=== PATIENT | female | born 1970 | race African-American/Black ===

== ENCOUNTER 2017-02-19 10:09 | Emergency (ER) | payer OTHER ==
[~2017-02-19] VITALS: Ht 172.7 cm; Wt 117.9 kg
[~2017-02-19 10:09] MED LIST: AMLODIPINE BESY10 MG PO; AMOXICILLIN 50500 M1; ANTIVERT25 MG PO; ATIVAN0.5 MG PO; CIPROFLOXACIN500 M1 PO; COREG25 MG; COZAAR 25MG TAB25 MG PO; COZAAR 50 MG TA50 M1 PO; HYDRALAZINE 2525 MG PO; K-PHOS NEUTRAL250 MG PO; LASIX 40 MG TAB40 M1 PO; LISINOPRIL10 MG PO; LOPRESSOR100 MG PO; LOSARTAN-HCTZ1 EACH PO; MOTION RELIEF25 MG PO; MYLICON DR40 MG/0.1 PO; NAPROSYN500 MG PO; NORCO 5-325 TA1 EACH PO; NORFLEX100 MG PO; NORVASC10 MG PO; OMEPRAZOLE 20 M20 M1 PO; OMEPRAZOLE40 MG; PACERONE 200 M200 M1 PO; PEPCID40 MG PO; POTASSIUM20 PO; SPIRONOLACTONE25 M3 PO; TOPROL XL100 MG PO; TYLENOL W/CODEI1 TA2 PO; ULTRAM 50MG TAB50 MG PO; ZOLOFT 50 MG TA50 M1 PO; ZPAK PO
[2017-02-19 10:46] LABS: ABSOLUTE NEUTROPHILS 3.4 thou/uL (1.4-8.2); BASOPHILS 0.7 % (0.0-2.0); HEMATOCRIT 39.8 % (37.0-47.0); HEMOGLOBIN 12.9 gm/dL (12.0-15.0); LYMPHOCYTES 23.3 % (24.0-44.0); MCH 25.1 pg (26.0-34.0); MCHC 32.5 g/dL (28.0-37.0); MCV 77.3 fL (80.0-100.0); MONOCYTES 9.9 % (1.0-8.0); PLATELET COUNT 324 thou/uL (150-400); POLYS 63.1 % (36.0-66.0); RBC 5.15 mil/uL (4.20-5.00); RDW 15.6 % (10.5-14.5); WBC 5.4 thou/uL (4.0-11.0)
[2017-02-19 10:48] LABS: MANUAL DIFF NO
[2017-02-19 10:59] LABS: CALCIUM 8.9 mg/dL (8.5-10.1); CREATININE 0.9 mg/dL (0.6-1.3); POTASSIUM 4.1 mmol/L (3.5-5.1)
[2017-02-19 11:04] LABS: ALBUMIN 3.2 g/dL (3.4-5.0); TOTAL BILIRUBIN 0.4 mg/dL (<0.1-1.0); TOTAL PROTEIN 7.9 g/dL (6.4-8.2)
[2017-02-19 11:54] LABS: URINE BILIRUBIN NEGATIVE (Negative); URINE BLOOD NEGATIVE (Negative); URINE COLOR YELLOW; URINE GLUCOSE-RANDOM* NEGATIVE (Negative); URINE KETONES NEGATIVE (Negative); URINE LEUKOCYTES-REFLEX NEGATIVE (Negative); URINE PROTEIN (DIPSTICK) NEGATIVE (Negative); URINE SPECIFIC GRAVITY 1.015 (1.003-1.035); URINE UROBILINOGEN 0.2 E.U./dl (0.2-1.0)
[2017-02-19] MEDS ORDERED: FLONASE 0.05%50 MCG NASAL (12:15)
[2017-02-19] MEDS ORDERED: ANTIVERT25 MG PO (12:15)
[2017-02-19] MEDS ORDERED: PHENERGAN 25 MG25 M1 PO (12:15)
== END 2017-02-19 13:23 | disposition home or self-care (01) ==
LOC: ER 10:09
PROVIDERS: Physician Assistant
DX: J06.9 Acute upper respiratory infection, unspecified (principal); B34.9 Viral infection, unspecified; I50.9 Heart failure, unspecified; I10 Essential (primary) hypertension; I42.9 Cardiomyopathy, unspecified; Z88.1 Allergy status to other antibiotic agents

== ENCOUNTER 2019-01-20 16:04 | Emergency (ER) | payer OTHER ==
[~2019-01-20] VITALS: Ht 172.7 cm; Wt 117.5 kg
[~2019-01-20 16:04] MED LIST changes: +FLONASE 0.05%50 MCG NASAL; +MEDROLDOSEPACK PO; +PHENERGAN 25 MG25 M1 PO
[2019-01-20 16:42] LABS: ABSOLUTE NEUTROPHILS 3.5 thou/uL (1.4-8.2); BASOPHILS 0.9 % (0.0-2.0); EOSINOPHILS 1.8 % (0.0-3.0); HEMATOCRIT 38.6 % (37.0-47.0); HEMOGLOBIN 12.7 gm/dL (12.0-15.0); LYMPHOCYTES 29.4 % (24.0-44.0); MCH 25.4 pg (26.0-34.0); MCHC 32.9 g/dL (28.0-37.0); MCV 77.2 fL (80.0-100.0); MONOCYTES 11.2 % (1.0-8.0); PLATELET COUNT 278 thou/uL (150-400); POLYS 56.7 % (36.0-66.0); RDW 15.8 % (10.5-14.5); WBC 6.2 thou/uL (4.0-11.0)
[2019-01-20 16:50] LABS: CALCIUM 9.2 mg/dL (8.5-10.1); CREATININE 1.2 mg/dL (0.6-1.0)
[2019-01-20 16:56] LABS: ALBUMIN 3.4 g/dL (3.4-5.0); TOTAL BILIRUBIN 0.8 mg/dL (<0.1-1.0); TOTAL PROTEIN 8.1 g/dL (6.4-8.2)
[2019-01-20 16:58] LABS: URINE BILIRUBIN NEGATIVE (Negative); URINE BLOOD NEGATIVE (Negative); URINE CLARITY CLEAR; URINE COLOR YELLOW; URINE GLUCOSE-RANDOM* NEGATIVE (Negative); URINE KETONES TRACE (Negative); URINE LEUKOCYTES-REFLEX NEGATIVE (Negative); URINE NITRITE-REFLEX NEGATIVE (Negative); URINE PROTEIN (DIPSTICK) NEGATIVE (Negative); URINE SPECIFIC GRAVITY >= 1.030 (1.005-1.035); URINE UROBILINOGEN 0.2 E.U./dl (0.2-1.0)
[2019-01-20] MEDS ORDERED: NORCO 5-325 TA1 EACH PO (19:20)
[2019-01-20 19:55] VITALS: BP 134/74
== END 2019-01-20 19:56 | disposition home or self-care (01) ==
LOC: ER 16:04
PROVIDERS: Emergency Medicine
DX: R10.13 Epigastric pain (principal); I11.0 Hypertensive heart disease with heart failure; I50.9 Heart failure, unspecified; I42.9 Cardiomyopathy, unspecified; Z88.1 Allergy status to other antibiotic agents; Z98.890 Other specified postprocedural states

== ENCOUNTER 2019-03-06 12:25 | Inpatient (IN) | payer OTHER ==
[~2019-03-06] VITALS: Ht 170.2 cm; Wt 123.2 kg
--- NOTE | ~2019-03-06 | HC ---
[facility] [place] [address] CONSULTATION Name: JASMYNE RODENIE Room #: 364-P [facility] IN M.R.#: [id number] Admission: 03/06/19 ������������������ Attend Phys: Sky Marrero MD Discharge: 03/07/19 ������������������ Date of : 70 Report #: [id number] THIS REPORT FOR: //name// CC: Josafat Marrero DATE OF SERVICE: 03/07/2019 INPATIENT CONSULTATION CHIEF COMPLAINT: Shortness of breath. HISTORY OF PRESENT ILLNESS: The patient is a 48-year-old female who has a history of a nonischemic cardiomyopathy. She is usually followed by Dr. Santiago, but has been doing relatively well and only sees him approximately once per year. Over the last several days, she had been having increasing shortness of breath. She denies palpitations or heart racing. She has a defibrillator and denies any defibrillator discharges. She had not been having orthopnea or PND. She has been compliant with her medications. She denies fevers, chills or productive cough. X-ray on presentation revealed mild infiltrates. She was given IV Lasix overnight and is comfortably sitting up in bed, without any complaints of dyspnea. 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 She had an ICD implant about 12 years ago. She has remote history of mitral valve repair. She does have a history of hypertension, which therapy was initiated before her heart failure diagnosis apparently. She cannot remember her last ejection fraction. She usually gets her care at [facility]. She has cervical radiculopathy. PAST SURGICAL HISTORY: Status post ICD. HOME MEDICATIONS: Include vitamin C, apple cider vinegar, amlodipine 5 mg daily, Coreg 12.5 mg p.o. b.i.d. and omeprazole. It is noted her defibrillator is a Bi[employer] device, which was interrogated and apparently has normal device function. REVIEW OF SYSTEMS: [facility] [address] [place] [address] CONSULTATION Name: JASMYNE ROD RIGOBERTO Room #: 364-P [facility] IN Sybil.#: [id number] Admission: 03/06/19 ������������������ Attend Phys: Sky Marrero MD Discharge: 03/07/19 ������������������ Date of : 70 Report #: [id number] GENERAL: No fevers or chills. PULMONARY: No wheezing or cough. CARDIOVASCULAR: No orthopnea, no PND. Positive dyspnea with exertion. Positive sharp chest pain. HEMATOLOGIC: No anemia or bleeding disorders. RENAL: No history of kidney failure. SKIN: No rash. ENDOCRINE: She is not known to be a diabetic. EYES: No history of blurred vision or loss of vision. PHYSICAL EXAMINATION: VITAL SIGNS: Blood pressure 115/83, pulse rate 76 and temperature is 36.9. Her weight is 123 kilograms. GENERAL: This is a pleasant, healthy-appearing -[place] female. She is in no apparent distress. HEENT: Eyes, EOMs intact. No facial asymmetry. NECK: Supple. No jugular venous distention. CARDIOVASCULAR: Regular. I cannot hear a murmur. LUNGS: Clear to auscultation. ABDOMEN: Nontender. EXTREMITIES: There is nonpitting edema. NEUROLOGIC: There are no focal deficits. LABORATORY DATA: Electrocardiogram shows sinus tachycardia, borderline LVH. Chest x-ray reveals pulmonary intravenous congestion, diffuse interstitial edema. Sodium is 138, potassium is 4.1, chloride is 105, CO2 is 26, BUN is 18 and creatinine is 1.3. Troponin I is 0.06 x 3 sets. BNP is 3027, N-terminal. Hemoglobin is 13.6, white blood cell count is 8.3 and platelet count is 270,000. Toxicology is negative. IMPRESSION: 1. Acute systolic congestive heart failure. She received a dose of IV Lasix in the Emergency Room, with mostly complete resolution of her symptoms overnight. She is breathing comfortably. I do not think this is related to noncompliance with her medical therapy, perhaps diet. She admits she drinks a lot of ice tea and perhaps has been more lax about her diet. 2. Nonischemic cardiomyopathy. She has a history of peripartum-related cardiomyopathy. An echocardiogram is ordered and we will try to obtain records from her most recent evaluation. Apparently, her ejection fraction had near normalized according to the patient with medical therapy. I think it is reasonable to continue with her home medical therapy, but she perhaps should have a Lasix available for p.r.n. usage. Initially, we will schedule her on 2 times per week with potassium. 3. Hypertension as noted above. She has been compliant with her medical [address] [address] CONSULTATION Name: JASMYNE ROD Room #: 364-P [facility] IN M.R.#: [id number] Admission: 03/06/19 ������������������ Attend Phys: Sky Marrero MD Discharge: 03/07/19 ������������������ Date of : 70 Report #: [id number] therapy and she seems fairly well controlled. 4. Status post implantable cardioverter defibrillator. Her device was interrogated. It is a Biotronik device. PLAN: If she has a near normal ejection fraction, then we would not alter her medical therapy, but only add low-dose Lasix 2 times per week. ��������������������������������������������� ���������������������������������������� By: ��������������������������������������������� [id number] Mauricio Gunderson MD, FACC /nt
[2019-03-06 12:25] VITALS: BP 197/138
[2019-03-06] MEDS ORDERED: VITAMINC500 PO (12:29)
[2019-03-06] MEDS ORDERED: VITAMIN D31000 UNI2 PO (12:30)
[2019-03-06] MEDS ORDERED: APPLE CIDER VI500 MG PO (12:30)
--- NOTE | 2019-03-06 13:11 | NUR ---
[employer] REP REQUESTED FOR STAT INTERROGATION [phone]
--- NOTE | 2019-03-06 13:16 | NUR ---
IV TEAM REQUESTED; THIS RN AND SEGUNDO SCANLON UNABLE TO ACCESS
--- NOTE | 2019-03-06 13:18 | NUR ---
BO WITH [employer] CALLED BACK STATING SHE IS ON HER WAY TO [place] AND WILL COME HERE AFTER; STATES HER DEFIB IS MONITORED DAILY; SHE WILL CALL FOR REPORT NOW AND CALL ME BACK; PROVIDER AWARE
[2019-03-06 13:32] LABS: URINE BILIRUBIN NEGATIVE (Negative); URINE BLOOD 3+ (Negative); URINE CLARITY SL CLOUDY; URINE COLOR YELLOW; URINE GLUCOSE-RANDOM* NEGATIVE (Negative); URINE KETONES NEGATIVE (Negative); URINE LEUKOCYTES-REFLEX NEGATIVE (Negative); URINE NITRITE-REFLEX NEGATIVE (Negative); URINE PROTEIN (DIPSTICK) NEGATIVE (Negative); URINE UROBILINOGEN 0.2 E.U./dl (0.2-1.0)
[2019-03-06 13:39] LABS: BACTERIA-REFLEX 1-9 Few /HPF (None Seen); CASTS None Seen /LPF (None Seen); CRYSTALS None Seen /LPF (None Seen); SQUAMOUS 4-10 Moderate /LPF (0-3); URINE RBC 3-10 Few /HPF (0-2); URINE WBC-REFLEX None Seen /HPF (0-5)
[2019-03-06 13:45] LABS: BASOPHILS 0.8 % (0.0-2.0); EOSINOPHILS 1.1 % (0.0-3.0); HEMOGLOBIN 13.6 gm/dL (12.0-15.0); LYMPHOCYTES 17.5 % (24.0-44.0); MCH 24.8 pg (26.0-34.0); MCHC 32.5 g/dL (28.0-37.0); MCV 76.3 fL (80.0-100.0); MONOCYTES 8.2 % (1.0-8.0); PLATELET COUNT 270 thou/uL (150-400); POLYS 72.4 % (36.0-66.0); RDW 15.7 % (10.5-14.5); WBC 8.3 thou/uL (4.0-11.0)
[2019-03-06 13:52] LABS: ANION GAP 7 mmol/L (7-16); BUN 18 mg/dL (7-18); CALCIUM 9.2 mg/dL (8.5-10.1); CHLORIDE 105 mmol/L (98-107); CO2 26 mmol/L (21-32); CREATININE 1.3 mg/dL (0.6-1.0); GLUCOSE 108 mg/dL (74-106); POTASSIUM 4.1 mmol/L (3.5-5.1); SODIUM 138 mmol/L (136-145)
[2019-03-06 13:57] LABS: APTT 26.7 Seconds (24.5-32.8); PROTIME 10.5 Seconds (9.3-11.4)
[2019-03-06 14:02] LABS: ALBUMIN 3.6 g/dL (3.4-5.0); MAGNESIUM 1.9 mg/dL (1.8-2.4); SGOT 27 U/L (15-37); SGPT 28 U/L (30-65); TOTAL BILIRUBIN 0.9 mg/dL (<0.1-1.0); TOTAL PROTEIN 8.5 g/dL (6.4-8.2); TROPONIN-I <0.06 ng/mL (<0.06)
[2019-03-06 14:09] LABS: AMP/METHAMP Negative (Negative); BARBITURATES Negative (Negative); BENZODIAZEPINES Negative (Negative); COCAINE Negative (Negative); METHADONE Negative (Negative); OPIATES Negative (Negative); PCP Negative (Negative)
[2019-03-06] MEDS ORDERED: CARVEDILOL12.5 MG PO (14:12)
[2019-03-06] MEDS ORDERED: NORVASC5 MG PO (14:12)
[2019-03-06] MEDS ORDERED: OMEPRAZOLE20 M2 PO (14:14)
[2019-03-06 15:24] VITALS: BP 157/127
[2019-03-06 15:27] VITALS: BP 139/92
--- NOTE | 2019-03-06 15:47 | NUR ---
ATTEMPTED TO GIVE REPORT; NURSE IS IN A ROOM AND WILL HAVE TO CALL ME BACKI PER FUNMI (SP?)
--- NOTE | 2019-03-06 16:22 | NUR ---
REPORT GIVEN; PT TRANSPORTING TO INPT ROOM NOW; LAB IN ROUTE TO DRAW REPEAT TROPONIN IN ROOM 364
[2019-03-06 16:40] VITALS: BP 154/96
--- NOTE | 2019-03-06 18:13 | NUR ---
PT ADMITTED FROM HOME. REPORTS DIZZINESS X 3 TODAY THAT WAS NOT RELIEVED WITH MECLIZINE..ALSO SHORT OF AIR...NO EDEMA NOTED..
[2019-03-06 19:44] VITALS: BP 143/91
[2019-03-07 00:10] VITALS: BP 128/74
[2019-03-07 03:33] VITALS: BP 133/84
--- NOTE | 2019-03-07 03:35 | NUR ---
Patient making slow progress towards outcome goals. Vital signs stable. No c/o chest pain. Rhythm sinus with pvcs. Gait steady up adlib without difficulty.
[2019-03-07 08:00] VITALS: BP 115/83
[2019-03-07 11:24] VITALS: BP 108/78
[2019-03-07 15:06] VITALS: BP 122/83
--- NOTE | 2019-03-07 15:18 | 2DMMODE ---
[facility] [address] [address] 2 D/M-MODE ECHOCARDIOGRAM Name: MARCELJASMYNE RIGOBERTO Room #: 364-P ADM IN M.R.#: [id number] ������������� Admission: 03/06/19 ������������� Attend Phys: Sky Marrero MD Discharge: ��� ������������� ��� Date of : 70 Date of Service: 03/07/19 1517 �� Report #: [id number] �������� ��������������������������������������������[id number] THIS REPORT FOR: //name// APPROVED REPORT Study performed: 03/07/2019 12:06:02 EXAM: Comprehensive 2D, Doppler, and color-flow Echocardiogram Patient Location: Echo lab Room #: 364 Status: routine BSA: 2.30 HR: 80 bpm BP: 108/78 mmHg Rhythm: Irregular Other Information Study Quality: Good Technically limited study due to morbid obesity. Indications Short of breath, CHF. Hx: NISCM, MV repair, ICD, HTN 2D Dimensions RVDd: 42.89 mm IVSd: 12.95 (7-11mm) LVOT Diam: 21.77 (18-24mm) LVDd: 64.45 mm PWd: 13.46 (7-11mm) Ascending Ao: 37.37 (22-36mm) LVDs: 56.01 (25-40mm) Aortic Root: 33.64 mm Volumes Left Atrial Volume (Systole) Single Plane 4CH: 90.25 mL Single Plane 2CH: 94.57 mL LA ESV Index: 42.00 mL/m2 Aortic Valve AoV Peak Warren.: 0.95 m/s AO Peak Gr.: 3.61 mmHg LVOT Max P.16 mmHg LVOT Max V: 0.89 m/s GENIE Vmax: 3.48 cm2 Mitral Valve MV Decel. Time: 199.51 ms MV PHT: 57.86 ms [facility] [place] [address] 2 D/M-MODE ECHOCARDIOGRAM Name: MARCELJASMYNE [facility] Room #: 364-[facility] IN M.R.#: [id number] ������������� Admission: 03/06/19 ������������� Attend Phys: Sky Marrero MD Discharge: ��� ������������� ��� Date of : 70 Date of Service: 03/07/19 1517 �� Report #: [id number] �������� ��������������������������������������������[id number] IVRT: 100.35 ms Pulmonary Valve PV Peak Warren.: 0.72 m/s PV Peak Gr.: 2.06 mmHg Tricuspid Valve TR Peak Warren.: 3.32 m/s RAP Estimate: 5.00 mmHg TR Peak Gr.: 44.18 mmHg PA Pressure: 49.00 mmHg Left Ventricle Left ventricle is moderately dilated. There is global hypokinesis of the left ventricle. Mild concentric left ventricular hypertrophy. Left ventricular systolic function is severely decreased. LVEF is 25-30%. This study is not technically sufficient to allow evaluation of the LV diastolic function. Right Ventricle Right ventricle is mildly dilated. Right ventricle is mildly hypokinetic. Device lead is present in the right ventricle. Atria Left atrium is moderately dilated. Right atrium is mildly dilated. Aortic Valve The aortic valve is normal in structure. Trace aortic regurgitation. There is no aortic valvular stenosis. Mitral Valve History of MV repair with annuloplasty ring. Mean pressure gradient is 5mmHg. Moderate to Severe mitral regurgitation. Eccentric jet directed to septum No evidence of mitral valve stenosis. Tricuspid Valve The tricuspid valve is normal in structure. Moderate to severe tricuspid regurgitation. Estimated PAP is 50mmHg. Pulmonic Valve The pulmonary valve is normal in structure. Mild to moderate pulmonic regurgitation. Great Vessels The aortic root is normal in size. The ascending aorta is normal in size. IVC is normal in size and collapses >50% with inspiration. [facility] [address] [place] [address] 2 D/M-MODE ECHOCARDIOGRAM Name: JASMYNE ROD RIGOBERTO Room #: 364-P ADM IN M.R.#: [id number] ������������� Admission: 03/06/19 ������������� Attend Phys: Sky Marrero MD Discharge: ��� ������������� ��� Date of : 70 Date of Service: 03/07/19 1517 �� Report #: [id number] �������� ��������������������������������������������[id number] Pericardium Trivial anterior pericardial fluid noted. <Conclusion> Left ventricle is moderately dilated. LVEF is 25-30%. There is global hypokinesis of the left ventricle. Right ventricle is mildly dilated. Right ventricle is mildly hypokinetic. Left atrium is moderately dilated. Right atrium is mildly dilated. There is no aortic valvular stenosis. Trace aortic regurgitation. Moderate to Severe mitral regurgitation. Eccentric jet directed to septum History of MV repair with annuloplasty ring. Mean pressure gradient is 5mmHg. No evidence of mitral valve stenosis. Moderate to severe tricuspid regurgitation. Estimated PAP is 50mmHg. Trivial anterior pericardial fluid noted. ��������������������������������������������� <ELECTRONICALLY SIGNED> ���������������������������������������� By: Mauricio Gunderson MD, FACC ��������������������������������������������� 03/07/19 1517 16 151 Mauricio Gunderson MD, FACC /INF
--- NOTE | 2019-03-07 16:35 | EKG ---
[place] [address] [facility] [place] [address] ELECTROCARDIOGRAM REPORT Name: MARCELJASMYNE MCKEONENIE Room #: 364-P ADM IN M.R.#: [id number] ������������������ Admission: 03/06/19 ������������������ Attend Phys: Sky Marrero MD Discharge: ������������������ Date of : 70 Report #: [id number] ����������������������������������������������������������������� [id number] THIS REPORT FOR: //name// [facility] ED Test Date: 2019-03-06 Test Time: 13:02:14 Pat Name: JASMYNE ROD Department: Room: 364 Gender: F Forms Builder: DELMA : 1970 Requested By: Woo Potter Order Number: [id number] MD: Mk Glover Measurements Intervals [place] Rate: 105 P: 56 IN: 164 QRS: 31 QRSD: 89 T: 112 QT: 341 QTc: 451 Interpretive Statements Sinus tachycardia Occasional premature ventricular complexes Poor R wave progression Nonspecific ST and T wave abnormality No previous ECGs available for comparison Electronically Signed On 03-07-2019 16:35:01 CDT by Mk Glover [email or web address] ��������������������������������������������� <ELECTRONICALLY SIGNED> ���������������������������������������� By: Mk Glover MD, [facility] ��������������������������������������������� 03/07/19 1635 D: [id number] Mk Glover MD, FAC /EPI
--- NOTE | 2019-03-07 16:57 | NUR ---
assessment: cm reviewed chart and met with patient at the bedside. PT REPORTS SHE LIVES AT HOME WITH HER TWO CHILDREN ONE IS 20 AND ANOTHER IS 14. SHE REPORTS SHE WAS HOPING SHE COULD GO TODAY BECAUSE ONE OF THEM HAS SCHIZOPHRENIA AND SHE WOULD RATHER BE HOME BUT STATES THEY WILL BE OK IF SHE HAS TO STAY. CM NOTIFIED ATTENDING. PT IS STAYING THE NIGHT. CM WENT BACK TO FIND OUT MORE INFORMATION FROM PATIENT REGARDING HER KIDS AND THEIR CURRENT SITUATION AT HOME BUT PT IS OUT FOR HER PIPIDA SCAN. CM NOTIFIED BEDSIDE RN OF SITUATION AND IF SHE COULD ASK IF ANOTHER FAMILY MEMBER COULD CHECK OR STAY WITH THE KIDS ALTHOUGH ONE IS OF AGE. CM NOTIFIED BEDSIDE RN OF THE NUMBER FOR THE [place] [employer] WHERE THEY COULD ALSO CALL AND REQUEST A WELLNESS CHECK IF PATINT FELT IT WAS NEEDED.
--- NOTE | 2019-03-07 18:28 | NUR ---
PT ADVISED TO STAY IN HOSPITAL TIL SEEN BY CARDIOLOGY TOMORROW TO EVALUATE EF 25-30% FROM ECHO TODAY. PATIENT IS LEAVING AMA. ADVISED OF RISKS TO HER AND ADVISED HER TO FOLLOW UP MICHAEL WITH DR MCGEE RE ECHO RESULTS.
== END 2019-03-07 18:58 | disposition left against medical advice (07) | DRG 292 ==
LOC: ER 12:25 → 3W 14:36 → EROBS 14:36 → 3W 16:22
PROVIDERS: Emergency Medicine; ADMIT Internal Medicine
DX: I11.0 Hypertensive heart disease with heart failure (principal); Z68.41 Body mass index [BMI] 40.0-44.9, adult; K21.9 Gastro-esophageal reflux disease without esophagitis; I50.43 Acute on chronic combined systolic (congestive) and diastolic (congestive) heart failure; I42.9 Cardiomyopathy, unspecified; E66.01 Morbid (severe) obesity due to excess calories; F41.9 Anxiety disorder, unspecified; Z53.21 Procedure and treatment not carried out due to patient leaving prior to being seen by health care provider; Z88.8 Allergy status to other drugs, medicaments and biological substances; Z95.810 Presence of automatic (implantable) cardiac defibrillator; Z79.899 Other long term (current) drug therapy
CPT/HCPCS: 10879